=== PATIENT | female | born 1955 | race Caucasian/White ===

== ENCOUNTER 2019-01-21 17:02 | Outpatient (CLI) | payer BC, SELFPAY ==
[2019-01-21 18:06] LABS: D-Dimer 490 ng/mlFEU (<500)
== END 2019-01-21 17:22 ==
PROVIDERS: PCP Student in an Organized Health Care Education/Training Program; Visit Provider Student in an Organized Health Care Education/Training Program
DX: R07.1 Chest pain on breathing (principal); R07.81 Pleurodynia
CPT/HCPCS: 36415; 85379

== ENCOUNTER 2019-01-22 15:51 | Outpatient (CLI) | payer BC, SELFPAY ==
--- NOTE | 2019-01-22 14:04 | DI.RAD_ITS ---
SYMPTOMS/DIAGNOSIS: PLEURITIC PAIN, (D-DIMER < 500), LUNG CRACKLES, PLEURODYNIA, R07.81, R09.89, MILD ILLNESS, ? PNEUMONIA/PLEURITIS/CARDITIS PA AND LATERAL CHEST: The heart is normal in size. The lungs are clear. The mediastinal structures and pleura appear intact. CONCLUSION: Normal chest.
== END 2019-01-22 16:11 ==
PROVIDERS: PCP Student in an Organized Health Care Education/Training Program; Visit Provider Student in an Organized Health Care Education/Training Program
DX: R07.81 Pleurodynia (principal); R09.89 Other specified symptoms and signs involving the circulatory and respiratory systems
CPT/HCPCS: 71046

== ENCOUNTER 2019-02-19 14:11 | Outpatient (CLI) | payer BC, SELFPAY ==
--- NOTE | 2019-02-19 15:50 | DI.CT_ITS ---
EXAM: CT RENAL COLIC WO CLINICAL HISTORY: renal colic ON LT SIDE, N23. TECHNIQUE: COMPARISON: No exams were available for comparison FINDINGS: CT examination of the abdomen and pelvis was performed without contrast administration. Images obtai myra through the lung bases are unremarkable. Visualized portions of the liver and spleen appear norm al. There is cholelithiasis without gallbladder wall thickening or a pericholecystic fluid collectio n. Pancreas appears normal. No biliary dilatation seen. Adrenals and kidneys appear normal. No ur inary tract calcification or obstruction. Urinary bladder unremarkable by noncontrast criteria. Extension Course Coordinator structures appear intact. Appendix is normal. No evidence of bowel obstruction or diverticulitis. Abdominal aorta is of normal diameter. IMPRESSION: Note is made of cholelithiasis. No evidence of urinary tract obstruction or calcification.
== END 2019-02-19 14:31 ==
PROVIDERS: PCP Student in an Organized Health Care Education/Training Program; Visit Provider Internal Medicine
DX: N23 Unspecified renal colic (principal); K80.20 Calculus of gallbladder without cholecystitis without obstruction
CPT/HCPCS: 74176

== ENCOUNTER 2019-02-27 16:27 | Outpatient (REF) | payer BC, SELFPAY | END 2019-02-27 16:47 | LOC: LBO 16:27 | PROVIDERS: PCP Student in an Organized Health Care Education/Training Program; Visit Provider Student in an Organized Health Care Education/Training Program | DX: R31.9 Hematuria, unspecified (principal) | CPT/HCPCS: 87086 ==

== ENCOUNTER 2019-03-04 13:02 | Outpatient (CLI) | payer BC, SELFPAY ==
[2019-03-04 13:28] LABS: HCT 40.2 % (36.0-46.0); HGB 13.4 g/dL (12.0-15.5); Mean Corp. HGB Concentration 33.3 g/dL (32.0-36.0); Mean Corpuscular Volume 95.9 fL (80-95); Mean Platelet Volume 9.4 fL (8.0-11.0); Platelet Count 304 x1000/uL (130-400); RBC 4.19 m/cumm (4.00-5.20); RBC Distribution Width 11.7 % (11.7-14.6); White Blood Cell Count 6.22 k/cumm (4.4-10.8)
[2019-03-04 14:19] LABS: Anion Gap 8.3 mmol/L (3-11); BUN 18 mg/dL (7-18); CO2 29.7 mmol/L (21.0-32.0); CREATININE 0.77 mg/dL (0.55-1.02); Calcium 9.6 mg/dL (8.5-10.1); Chloride 104 mmol/L (98-107); Glucose 89 mg/dL (70-100); Potassium 4.3 mmol/L (3.5-5.1); Sodium 142 mmol/L (136-145)
== END 2019-03-04 13:22 ==
PROVIDERS: PCP Student in an Organized Health Care Education/Training Program; Visit Provider Student in an Organized Health Care Education/Training Program
DX: R53.83 Other fatigue (principal); R31.9 Hematuria, unspecified; R79.89 Other specified abnormal findings of blood chemistry
CPT/HCPCS: 36415; 80048; 85027

== ENCOUNTER 2019-04-17 12:06 | Outpatient (CLI) | payer BC, SELFPAY ==
--- NOTE | 2019-04-17 13:19 | DI.MAMMO_ITS ---
EXAM: MAMMO SCREENING CLINICAL HISTORY: screening Z12.39 TECHNIQUE: Mammograms were interpreted according to the usual protocol including computer analysis w [employer] CAD system, tomosynthesis and C-view imaging. COMPARISON: 2013 and 2014 from [facility]. FINDINGS: The breasts are composed of heterogeneously dense fibroglandular densities, Breast Density category C . No suspicious masses or suspicious microcalcifications are seen. No skin thickening or abnormal axillary lymph nodes are seen. There has been no significant change from prior exams. IMPRESSION: BIRADS Category 1, negative mammogram. Yearly screening mammography is recommended. BI-RADS Cat 1 - Negative Breast Density - Category C - Heterogeneously dense BREAST DENSITY: The mammogram demonstrates the patient's breast tissue is dense. Dense breast tissue is very common and is not abnormal but dense breast tissue can make it harder to find cancer on a ma mmogram. Also, dense breast tissue may increase their breast cancer risk. This information about the result of the mammogram report was provided to the patient to raise their awareness. Use this report when you speak with the patient about their risks for breast cancer, which includes their family hist ory. At that time, you may recommend for more screening tests (Ultrasound or MRI) as they might be us eful based on their risk. A negative radiographic report should not delay biopsy if a dominant or clinically suspicious mass is present. Up to ten percent of cancers are not identified on mammography. A negative report may reinforce clinical impression. Adenosis and dense breasts may obscure an underlying neoplasm. False positive reports average 6 to 10%.
== END 2019-04-17 12:26 ==
PROVIDERS: PCP Student in an Organized Health Care Education/Training Program; Visit Provider Student in an Organized Health Care Education/Training Program
DX: Z12.31 Encounter for screening mammogram for malignant neoplasm of breast (principal)
CPT/HCPCS: 77063; 77067

== ENCOUNTER 2020-03-28 03:37 | Outpatient (CLI) | payer BC, SELFPAY ==
[2020-03-30 22:06] LABS: SARS-CoV-2 RNA Undetected (Undetected); SARS-CoV-2 Specimen Source Nasal
== END 2020-03-28 03:57 ==
PROVIDERS: PCP Student in an Organized Health Care Education/Training Program; Visit Provider Nurse Practitioner Adult Health
DX: Z11.59 Encounter for screening for other viral diseases (principal)
CPT/HCPCS: U0003

== ENCOUNTER 2020-09-16 16:56 | Emergency (ER) | payer BC, SELFPAY ==
[2020-09-16 17:02] VITALS: BP 155/109; PULSE 62; RESP 16; TEMP 36.6; O2SAT 100
--- NOTE | 2020-09-16 17:07 | ED.GENADUL_ITS ---
Discharge Plan Disposition Patient Disposition: HOME Condition: Stable Discharge Details Clinical Impression: Black stools Primary Care Provider: Teresa Barth ED Provider: Haley Dave Home Meds and New Rx's Prescriptions: No Action sertraline 25 mg tablet 25 mg PO DAILY Qty: 90 RF: 1 naproxen sodium [Aleve] 220 mg tablet 440 mg PO DAILY PRNRF: 0 Hold Instructions: Home Medication placed on hold at Doctor's office lisinopril 10 mg tablet 10 mg PO BID Qty: 180 RF: 2 Discharge Instructions Instructions: Gastrointestinal Bleeding (ED) Additional Instructions: Take an over the counter antacid such as Pepcid, Prevacid or similar. Stop the Aleve. Return to ED if dizziness, lightheadedness, worsening abdominal pain or any concerns. Keep appt with General surgery as previously scheduled. Please be aware I cannot rule out more serious problems without doing abdominal imaging. Today the Hbg was 11.2 and Hct 33.4 which is borderline low. Referrals: Teresa Barth DO [Primary Care Provider] - Discharge Data Discharge Date/Time-TO BE ENTERED AT DEPARTURE: 09/16/20 18:25 Medical Decision Making 65 year old female presents to ED with chief complaint of black stools and inter mittent abdominal cramping x 3 days. She reports symptoms began after having a piece of fish. She does endorse to taking 2 Aleve approximately 3-4 times a week for left shoulder pain from a rotator cuff repair. Denies vomiting, no rectal pain, no abdominal pain upon arrival. A&O x4. Was sent here from [facility] and had a guaic positive stool, and was referred for colonoscopy Saturday. Patient is initially declining CT scan until lab results obtained. PAtient has a PmHx of HTN, Gallstones, Depression. At this time Labs ordered including Type and screen and PT INR. Patient initially declining CT abd/Pelvis and would like lab results first. Patient declined IV. Lab results show RBC of 3.45 Hgb 11.2 Hct 33.4, PT INR all WNL, CMP WNL except for BUN 31 AST 14. Discussed lab results with patient and she confirmed she still does not want to go forward with CT or IV meds. Discussed home care including stopping the Aleve, taking an antacid or H2 kayden such as Prevacid or Pepcid OTC and keeping appt with General surgery on Saturday. Discussed strict return instructions including to return if increased dizziness, lightheadedness, worsening abdominal pain or bleeding. Verbalized understanding. Discussed that I cannot rule out serious underlying pathology at this time without further imaging. Verbalized understanding. Patient remained hemodynamically stable, non-tachycardic throughout stay. HPI General Mode of arrival: ambulatory . Date/Time Provider Initiated Documentation: 09/16/20 17:03 . Limitations to Documentation: no limitations . Information obtained by: patient . HPI Narrative: 65 year old female presents to ED with chief complaint of black stools and intermittent abdominal cramping x 3 days. She reports symptoms began after having a piece of fish. She does endorse to taking 2 Aleve approximately 3-4 times a week for left shoulder pain from a rotator cuff repair. Denies vomiting, no rectal pain, no abdominal pain upon arrival. A&O x4. Was sent here from [facility] and had a guaic positive stool, and was referred for colonoscopy Saturday. Patient is initially declining CT scan until lab results obtained. PAtient has a PmHx of HTN, Gallstones, Depression. Related Data Home Medications Medication Instructions Recorded Confirmed naproxen sodium 220 mg tablet 440 mg PO DAILY PRN tab 02/27/19 09/16/20 sertraline 25 mg tablet 25 mg PO DAILY #90 tab 04/01/20 09/16/20 lisinopril 10 mg tablet 10 mg PO BID #180 tab 07/08/20 09/16/20 Previous Rx's Medication Instructions Recorded sertraline 25 mg tablet 25 mg PO DAILY #90 tab 04/01/20 lisinopril 10 mg tablet 10 mg PO BID #180 tab 07/08/20 Allergies Allergy/AdvReac Type Severity Reaction Status Date / Time No Known Allergies Allergy Verified 09/16/20 17:06 General Stated Complaint: GI Bleed MARY: 2 Review of Systems Constitutional Constitutional: Reports as per HPI and Reports poor appetite Respiratory Respiratory: Reports system reviewed and no additional complaints, except as documented, Denies cough and Denies hemoptysis Gastrointestinal Gastrointestinal: Reports abdominal pain, Reports melena, Reports change in bowel habits, Denies fecal incontinence, Denies diarrhea, Reports nausea, Denies vomiting and Denies hematemesis Genitourinary Genitourinary: Reports system reviewed and no additional complaints, except as documented, Denies urinary urgency and Reports other (Reports warm urination) [facility] Medical History Acute colitis 09/06/2011 on colonoscopy. Pathology scanned. Depression Hx, restarting Sertr 03/2020. Isolation 2' COVID, Shldr Injury. Essential hypertension Pleuritic pain Sudden onset, 01/20/19. Surgical History S/P left rotator cuff repair (12/21/19) RCR, ACD, DCR, and OBT. 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 [employer] Pets and animals: Yes (CAT) Sexually active: No Do you think of yourself as: straight/heterosexual Current gender identity: female What is your relationship status?: Panel score (0-1 are the most socially isolated patients): 0 Seatbelt use: always Drive intox or ride w/intox production truck driver: No Working smoke detector in home: Yes Fire extinguisher in home: Yes Do you feel safe at home: Yes Do you feel safe in your relationship?: Yes Exam Const General: cooperative, healthy appearing, comfortable, well developed and well groomed Nutritional Appearance: average body habitus and well nourished Orientation: alert, awake and oriented x3 Chest Chest: normal inspection of the chest Resp Effort & Inspection: normal respiratory effort and able to speak in complete sentences Auscultation: clear to auscultation bilaterally Cardio Jugular venous pressure: no JVD Palpation: normal PMI Rate: regular rate Rhythm: regular rhythm and abnormal rhythm Heart Sounds: S1 normal and S2 normal GI Inspection: normal to inspection Palpation: soft Auscultation: normal bowel sounds Neuro General: patient alert, patient awake and patient oriented x3 Cranial Nerves: CN's II-XI intact bilaterally Cognition: normal cognition Speech: speech normal Gait: normal gait Course Vital Signs Vital signs: Vital Signs Temperature 36.6 C 09/16/20 17:02 Pulse 62 09/16/20 17:02 Respiratory Rate 16 09/16/20 17:02 Blood Pressure 155/109 H 09/16/20 17:02 Pulse Oximetry 100 09/16/20 17:02 Temperature 36.6 C 09/16/20 17:02 Temperature Source Skin 09/16/20 17:02 Pulse 62 09/16/20 17:02 Respiratory Rate 16 09/16/20 17:02 Respiratory Effort Non-Labored 09/16/20 17:07 Blood Pressure 155/109 H 09/16/20 17:02 Blood Pressure Position Sitting 09/16/20 17:02 Pulse Oximetry 100 09/16/20 17:02 Oxygen Delivery Method Room Air 09/16/20 17:02 Oxygen Flow Rate 0 09/16/20 17:02 Pain Level 3 09/16/20 17:02
[2020-09-16 17:10] VITALS: BP 120/69; PULSE 60; O2SAT 100
--- NOTE | 2020-09-16 17:18 | NUR.NOTE ---
pt refusing IV or to change into gown until blood work is back does not want CT unless blood work indicates need Nursing Note:
[2020-09-16 17:36] LABS: Abs Immature Grans 0.02 10^3/uL (0.0-0.06); Absolute Basophil Count 0.07 10^3/uL (0.0-0.2); Absolute Lymphocyte Count 2.69 10^3/uL (1.2-3.4); Absolute Neutrophil Count 3.83 10^3/uL (1.2-6.7); Eosinophils % 1.4; HCT 33.4 % (36.0-46.0); HGB 11.2 g/dL (11.2-15.7); Immature Grans % 0.3; Lymphocytes % 37.8; MCH 32.5 pg (27.0-33.0); MCHC 33.5 % (32.0-36.0); MCV 96.8 fL (80-95); MPV 9.6 fL (8.0-11.0); Monocytes % 5.6; Neutrophils % 53.9; Nucleated RBC 0 %; Platelet Count 268 10^3/uL (130-400); RBC 3.45 10^6/uL (3.93-5.22); RDW 11.7 % (11.7-14.6); RDW-SD 41.4 fL; WBC 7.11 10^3/uL (4.4-10.8)
[2020-09-16 17:51] LABS: Prothrombin Time 9.9 sec (9.3-11.0)
[2020-09-16 17:52] LABS: ALT 19 U/L (14-59); AST 14 U/L (15-37); Albumin 4.1 g/dL (3.4-5.0); Alkaline Phosphatase 87 U/L (46-116); Anion Gap 6.3 mmol/L (3-11); BUN 31 mg/dL (7-18); Bilirubin, Total 0.3 mg/dL (0.2-1.0); CO2 28.7 mmol/L (21.0-32.0); CREATININE 0.8 mg/dL (0.55-1.02); Calcium 9.6 mg/dL (8.5-10.1); Chloride 106 mmol/L (98-107); Glucose 105 mg/dL (74-106); Potassium 4.2 mmol/L (3.5-5.1); Sodium 141 mmol/L (136-145); Total Protein 7.4 g/dL (6.4-8.2)
[2020-09-16 18:26] VITALS: BP 121/81; PULSE 61; RESP 16; TEMP 36.6; O2SAT 97
== END 2020-09-16 18:25 | disposition home or self-care (01) ==
PROVIDERS: Emergency Provider Registered Nurse Emergency; PCP Student in an Organized Health Care Education/Training Program
DX: R19.5 Other fecal abnormalities (principal)
CPT/HCPCS: 36415; 80053; 86850; 86900; 86901; 99283; 83735; 85025; 85610

== ENCOUNTER 2020-09-19 11:55 | Outpatient (CLI) | payer BC, SELFPAY ==
[2020-09-19 12:13] LABS: Abs Immature Grans 0.02 10^3/uL (0.0-0.06); Absolute Basophil Count 0.06 10^3/uL (0.0-0.2); Absolute Eosinophil Count 0.08 10^3/uL (0.0-0.7); Absolute Lymphocyte Count 1.62 10^3/uL (1.2-3.4); Absolute Neutrophil Count 2.97 10^3/uL (1.2-6.7); Basophils % 1.2; Eosinophils % 1.6; HCT 31.8 % (36.0-46.0); HGB 10.5 g/dL (11.2-15.7); Immature Grans % 0.4; Lymphocytes % 32.1; MCH 32.2 pg (27.0-33.0); MCV 97.5 fL (80-95); MPV 10.4 fL (8.0-11.0); Monocytes % 5.9; Neutrophils % 58.8; Nucleated RBC 0 %; Platelet Count 291 10^3/uL (130-400); RBC 3.26 10^6/uL (3.93-5.22); RDW 11.9 % (11.7-14.6); RDW-SD 41.7 fL; WBC 5.05 10^3/uL (4.4-10.8)
[2020-09-19 12:21] LABS: Iron 62 ug/dL (50-170); Total Iron Binding Capacity 295 ug/dL (250-450); Transferrin Sat 21 % (15-50)
[2020-09-19 12:36] LABS: Ferritin 61 ng/mL (8-252)
[2020-09-19 12:44] LABS: C-Reactive Protein 0.63 mg/dL (0.0-0.3)
== END 2020-09-19 11:56 | disposition home or self-care (01) ==
LOC: LBO 11:56
PROVIDERS: Surgery; PCP Student in an Organized Health Care Education/Training Program; Visit Provider Student in an Organized Health Care Education/Training Program
DX: K92.1 Melena (principal); R10.13 Epigastric pain; R53.1 Weakness; R53.83 Other fatigue
CPT/HCPCS: 82728; 83540; 83550; 84443; 85025; 85610; 86140

== ENCOUNTER 2020-09-21 02:35 | Outpatient (CLI) | payer BC, SELFPAY ==
[2020-09-21 11:39] LABS: Source Nasal/Nares
[2020-09-21 21:48] LABS: COVID-19 PCR Negative (Negative)
== END 2020-09-21 02:36 | disposition home or self-care (01) ==
LOC: LBO 02:35
PROVIDERS: PCP Student in an Organized Health Care Education/Training Program; Visit Provider Surgery
DX: Z20.822 Contact with and (suspected) exposure to COVID-19 (principal); Z01.818 Encounter for other preprocedural examination
CPT/HCPCS: 87635

== ENCOUNTER 2020-09-23 09:11 | Day surgery (SDC) | payer BC, SELFPAY ==
[2020-09-23 09:32] VITALS: BP 121/76; PULSE 56; RESP 16; TEMP 36.5; O2SAT 100
[2020-09-23] MEDS: Lactated Ringers 1,000 ML 80 ML IV (09:54)
--- NOTE | 2020-09-23 10:21 | W.ANESPRE ---
General Info Date of Service Date Performed: 09/23/20 Height: 5 ft 4 in Weight: 78.982 kg Body Mass Index (BMI): 29.9 Surgical Procedure: Operation Date: 09/23/20 10:05 Proposed Procedures Side Surgeon p Colonoscopy/Gastroscopy Margaret Tim, DO Meds Allergies and Home Medications Allergies Allergy/AdvReac Type Severity Reaction Status Date / Time No Known Allergies Allergy Verified 09/20/20 10:50 Home Medication Medication Instructions Recorded naproxen sodium 220 mg tablet 440 mg PO DAILY PRN tab 02/27/19 sertraline 25 mg tablet 25 mg PO DAILY #90 tab 04/01/20 lisinopril 10 mg tablet 10 mg PO BID #180 tab 07/08/20 apple cider vinegar 500 mg tablet 2,000 mg PO DAILY tab 09/19/20 bisacodyl 5 mg tablet,delayed 5 mg PO ONCE #4 tab 09/19/20 release polyethylene glycol 3350 17 238 g PO ONCE #238 g 09/19/20 gram/dose oral powder Current Visit Medications: Current Medications Generic Name Dose Route Start Last Admin Trade Name Freq PRN Reason Stop Dose Admin Ringer's Solution 1,000 mls @ 80 mls/hr 09/23/20 06:00 09/23/20 09:54 IV 10/22/20 23:59 80 mls/hr INFUSION NATALIYA Administration Iron Sucrose 200 mg/ Sodium 110 mls @ 440 mls/hr 09/23/20 06:00 Chloride IVPB 09/23/20 23:59 TODAY NATALIYA IV Miscellaneous Supplies 1 each 09/23/20 06:00 Iv Access IV 10/22/20 23:59 DIRECTED NATALIYA Sodium Chloride 0 ml 09/23/20 06:00 Normal Saline Flush 10 Ml Syr IV 10/22/20 23:59 PRN PRN Sodium Chloride 0 ml 09/23/20 06:00 Normal Saline 10 Ml Vial IJ 10/22/20 23:59 DIRECTED PRN Sterile Water 0 ml 09/23/20 06:00 Water,Injection,Sterile 10 Ml Vial IJ 10/22/20 23:59 DIRECTED PRN PFSH Active Problems Active Problems: Problem Status Onset Code Weak R53.1 Fatigue R53.83 Epigastric pain R10.13 Black stools K92.1 Left shoulder pain M25.512 Frequent headaches R51 Essential hypertension I10 Family history of breast cancer Z80.3 Gallstones K80.20 Pleuritic pain R07.81 Depression F32.9 Medical History Medical History Acute colitis 09/06/2011 on colonoscopy. Pathology scanned. Depression Hx, restarting Sertr 03/2020. Isolation 2' COVID, Shldr Injury. Essential hypertension Pleuritic pain Sudden onset, 01/20/19. Surgical History Surgical History S/P left rotator cuff repair (12/21/19) RCR, ACD, DCR, and OBT. Clive Bazan MD, [facility] Tobacco Smoking/Tobacco Use Status: Never Alcohol Alcohol Intake: current Alcohol intake frequency: a few times a month Alcohol type: wine Substance Use Substance use: Never Substance use type: does not use Vital Signs and Lab Results Vital Signs Most Recent Vital Signs in EMR: Most Recent Vital Signs Temp Pulse Resp BP Pulse Ox 36.5 C 56 L 16 121/76 100 09/23/20 09:32 09/23/20 09:32 09/23/20 09:32 09/23/20 09:32 09/23/20 09:32 Lab Results Blood Type / Crossmatch: Patient ABO/Rh A Positive 09/16/20 17:27 09/16/20 Antibody Screen Negative 09/16/20 17:27 09/16/20 Complete Blood Count: White Blood Count 5.05 10^3/uL (4.4-10.8) 09/19/20 11:00 09/19/20 Red Blood Count 3.26 10^6/uL (3.93-5.22) L 09/19/20 11:00 09/19/20 Hemoglobin 10.5 g/dL (11.2-15.7) L 09/19/20 11:00 09/19/20 Hematocrit 31.8 % (36.0-46.0) L 09/19/20 11:00 09/19/20 Platelet Count 291 10^3/uL (130-400) 09/19/20 11:00 09/19/20 Complete Metabolic Panel: Sodium Level 141 mmol/L (136-145) 09/16/20 17:09/16/20 Potassium Level 4.2 mmol/L (3.5-5.1) 09/16/20 17:09/16/20 Chloride Level 106 mmol/L (98-107) 09/16/20 17:09/16/20 Carbon Dioxide Level 28.7 mmol/L (21.0-32.0) 09/16/20 17:09/16/20 Blood Urea Nitrogen 31 mg/dL (7-18) H 09/16/20 17:09/16/20 Creatinine 0.8 mg/dL (0.55-1.02) 09/16/20 17:09/16/20 Magnesium Level 2.0 mg/dL (1.8-2.4) 09/16/20 17:09/16/20 Calcium Level 9.6 mg/dL (8.5-10.1) 09/16/20 17:09/16/20 Albumin 4.1 g/dL (3.4-5.0) 09/16/20 17:09/16/20 Glucose Level 105 mg/dL (74-106) 09/16/20 17:09/16/20 C-Reactive Protein 0.63 mg/dL (0.0-0.3) H 09/19/20 11:00 09/19/20 Liver Function Panel: Alanine Aminotransferase (ALT/SGPT) 19 U/L (14-59) 09/16/20 17:09/16/20 Aspartate Amino Transf (AST/SGOT) 14 U/L (15-37) L 09/16/20 17:09/16/20 Coagulation Panel: INR International Normalized Ratio 1.0 (0.9-1.1) 09/16/20 17:09/16/20 Prothrombin Time 9.9 sec (9.3-11.0) 09/16/20 17:09/16/20 Cardiac Panel: No Data to Display Arterial Blood Gas: No Data to Display Venous Blood Gas: No Data to Display Pancreas Panel: No Data to Display Thyroid Panel: Thyroid Stimulating Hormone (TSH) 1.50 uIU/mL (0.36-3.74) 09/19/20 11:00 09/19/20 Infectious Disease: Coronavirus (COVID-19)(PCR) Negative (Negative) 09/21/20 10:11 09/21/20 Coronavirus 2019 Source Nasal/nares 09/21/20 10:11 09/21/20 Blood Cultures: No Data to Display Toxicology Panel: No Data to Display Anesthesia Assessment and Plan Anesthesia History Personal History: No History of Anesthesia Complications Family History: No Family History of Anesthesia Complications Exercise Tolerance Exercise Tolerance: Metabolic Equivalents>4 Pertinent Negatives Pertinent Negatives: No Symptoms of GERD, No Major Cardiovascular Symptoms or Complaints, No Major Pulmonary Symptoms or Complaints and No History of CVA/TIA Cardiac & Pulmonary Exam Cardiac Exam: Normal S1/S2 Heart Sounds Pulmonary Exam: Clear Bilateral Breath Sounds Airway Exam Known Difficult Airway: No Mallampati Class: 2 Mouth Opening: Normal (> 3cm) Thyromental Distance: Greater than 3 cm Neck Range of Motion: Full ROM Neck Circumference: Normal Teeth Condition: Normal Dentition ASA Classification ASA Score: ASA 2 Emergency Case?: No NPO Status NPO Status: NPO Clears >2 hours, Solids >8 hours Anesthesia Plan Resuscitation Status: Full Code Anesthesia Technique: General Anesthesia Airway Planned: Natural Airway Monitors Used: Standard Monitors
[2020-09-23 10:41] VITALS: BMI 29.9
--- NOTE | 2020-09-23 10:51 | W.COLOREPORT ---
Date of service: 09/23/20 Time of Service: 10:51 Colonoscopy Report Date of procedure: 09/23/20 Pre-op diagnosis general: anemia Post-op diagnosis procedure note: same Surgeon: Margaret Tim Anesthesia Type: General:No Airway Estimated blood loss (mL): 0 Pathology: none sent Complications: None Disposition: same day Prep: Miralax/Dulcolax Retraction Time: 8 mins Procedure Description: After informed consent was obtained the patient was taken to the procedure room and placed in a left decubitous position. Monitors were applied and a time out was done. The patients name, date of , procedure, allergies to medications and metal in their body was reviewed. The patient was then sedated. Once sedated and comfortable a rectal exam was done. External exam was normal. Internal exam revealed a normal sphincter tone and no palpable masses. The scope was then introduced and retrofelexed. No internal hemorrhoids were identified. The scope was then advanced to the cecum without difficulty. The TI and appendiceal orifice were identified. The prep was . The scope was then slowly retracted over 8 minutes back into the rectum. There are no polyps, AVMs, or diverticula apparent. Mucosa appears pink and healthy.. The scope was removed and the patient was woken up and taken back to Same day surgery in stable condition. The patient tolerated the procedure well and there were no immediate complications. Follow up: The patient should follow up in 10 years unless they develop changes in bowel habits or other new gastrointestinal complaints.
--- NOTE | 2020-09-23 10:53 | ENDO_ITS ---
Date of service: 09/23/20 Time of Service: 10:53 Endoscopy Report DATE OF PROCEDURE: 09/23/20 PRE-OP DIAGNOSIS: anemia SURGEON: Margaret Tim ANESTHESIA TYPE: General:No Airway PATHOLOGY: other COMPLICATIONS: None DISPOSITION: same day PROCEDURE DESCRIPTION: After informed consent was obtained the patient was take to the procedure room and placed in a supine position. Monitors were applied and a time out was done. The patients name, date of , procedure type, allergies to medicnlations and metal in their body was reviewed. A bite block was placed and the patient was sedated. Once sedated and comfortable the gastroscope was advanced through the oropharynx which was grossly normal into the esophagus. The proximal and mid-esophagus were . In the distal esophagus there was no esophageal erosions, varices, diverticula. She does have a small sliding-type hiatal hernia, less than 2 cm. The scope was advanced into the stomach and through the pylorus into the 3rd portion of the duodenum. The duodenum was noted to be normal. Biopsies were done; all specimens are retrieved and no bleeding is noted. The scope was retracted back into the stomach and biopsies were done to rule out H. pylori. There was a small ulcer in the antral region. This has a whitish eschar on it. There is a minimal amount of bleeding was from this area. Biopsies were taken. The biopsies did not cause or create any further bleeding. The scope was retroflexed. The cardia and fundus were noted to be normal. The scope was retracted back into the esophagus and biopsies were done of the GE junction to rule out Handley's. The Z line was regular. The scope was removed and the patient was woken up and taken back to [facility] in stable condition. Follow up: 2 weeks time. This is considered to be the source of the patient's anemia.
--- NOTE | 2020-09-23 11:05 | BOWEL_PTH ---
PATIENT: Kiersten Sewell LOC: [facility] U#:[id number] AGE/SX: 65/F ROOM: RE09/23/[address]: Margaret Tim : 1955 BED: DIS: 09/23/2020 SPEC #: [id number] RECD: 09/23/20 12:49 STATUS: TORI REChapo #: [id number] LUCERO: 09/23/20 11:[address]: Margaret Tim DEPT: Surgical Specimen RECD BY: Joycelyn Alex ENTERED: 09/23/20 12:51 SP TYPE: Bowel OTHR DR: Teresa Barth DO Tissues: 1 - BIOPSY BOWEL 2 - BIOPSY BOWEL 3 - STOMACH BIOPSY 4 - STOMACH BIOPSY 5 - STOMACH BIOPSY 6 - ESOPHAGUS BIOPSY 7 - ESOPHAGUS BIOPSY Procedures: GROSS AND MICRO LEVEL 4 Comments: [id number]
[2020-09-23 11:36] VITALS: BP 117/70; PULSE 54; RESP 16; TEMP 36.7; O2SAT 98
--- NOTE | 2020-09-23 11:38 | W.ANESPOSTOP ---
Postoperative Evaluation Date, Time and Location Date Performed: 09/23/20 Time Performed: 11:38 Patient Location: Day Surgery Unit Vital Signs Most Recent Imported Vital Signs: Most Recent Vital Signs Temp Pulse Resp BP Pulse Ox 36.5 C 56 L 16 121/76 100 09/23/20 09:32 09/23/20 09:32 09/23/20 09:32 09/23/20 09:32 09/23/20 09:32 Most Recent Manually Entered Vital Signs: Adult Blood Pressure: 117/70 Heart Rate: 57 Respirations: 14 Oxygen Saturation (%): 94 Temperature (C): 36.7 C Pain Score (0-10 Scale): 3 Pain Score Most Recent Pain Score: Most Recent Pain Score Pain Level 0 09/23/20 09:32 Assessment Mental Status: Awake (Alert & Oriented to Patient Baseline) Airway and Respiratory Function: Patent airway with normal (patient baseline) respiratory exam Cardiovascular Function: Hemodynamically Stable Hydration Status: Adequately Hydrated Nausea & Vomiting: No Nausea or Vomiting Pain: Pt. Denies Any Pain Peripheral Nerve Block: Patient did not receive a nerve block
[2020-09-23 11:39] VITALS: BP 117/70; PULSE 57; RESP 14; TEMPC 36.7; O2SAT 94
--- NOTE | 2020-09-23 11:41 | PDOC.DSDIS_ITS ---
Discharge Plan Disposition Patient Disposition: HOME Condition: Good Discharge Details Reason For Visit: egd and colon scope Attending Provider: Margaret Tim Primary Care Provider: Teresa Barth Home Meds and New Rx's Prescriptions: New pantoprazole [Protonix] 40 mg tablet,delayed release (DR/EC) 40 mg PO BID 84 Days Qty: 168 RF: 12 sucralfate [Carafate] 1 gram tablet 1 g PO QACHS 30 Days Qty: 120 RF: 12 Continued sertraline 25 mg tablet 25 mg PO DAILY Qty: 90 RF: 1 Discontinued naproxen sodium [Aleve] 220 mg tablet 440 mg PO DAILY PRNRF: 0 Hold Instructions: Home Medication placed on hold at Doctor's office apple cider vinegar 500 mg tablet 2,000 mg PO DAILY RF: 0 polyethylene glycol 3350 17 gram/dose powder 238 g PO ONCE Qty: 238 RF: 0 bisacodyl [Dulcolax (bisacodyl)] 5 mg tablet,delayed release (DR/EC) 5 mg PO ONCE Qty: 4 RF: 0 No Action lisinopril 10 mg tablet 10 mg PO BID Qty: 180 RF: 2 Discharge Instructions Additional Instructions: DSU Colonoscopy Post- Op Instructions Instructions for Everyone who is given Anesthesia: For your safety, please do the following for the next twenty-four (24) hours: *Do Not operate a motor vehicle (car, truck, motorcycle, etc.) *Do Not drink alcoholic beverages or use any recreational drugs for the first 24 hours or while taking pain medications. The medications in your body may have a reaction that can be dangerous. *Do Not make any important decisions or sign any important papers. Findings: stomach ulcer No ASA/NSAID's for 6 wks protonix twice a day for 12 wks carafate at bedtime and 30 mins before a meal for 4wks. Continue with lifestyle modifications: no alcohol, tobacco products, Aspirin or NSAID's (ibuprofen, Motrin, Naprosyn, aleve, etc), soda pop/any carbonated beverages, caffeine (including tea & chocolate), and acidic foods, (tomatoes, citrus, onions, peppermints) spicy foods. Do not lie down for 30 minutes after eating, and do not eat 2 hours prior to bedtime. Avoid wearing tight fitting clothing/ belts Follow up:3 wks for repeat labs and clinic visit. 1. No lifting over 20 pounds or strenuous activity for the first 24 hours after your procedure. After 24 hours there are no restrictions on your activity but you may feel fatigued for a few days. 2. After you arrive home you may have a light meal and return to your normal diet as you can tolerate it without feeling sick to your stomach. 3. You may have a bloated, gaseous feeling in your belly (abdomen) after a colonoscopy. Passing gas and belching will help. Walking or lying down on your left side with your knees flexed may relieve the discomfort. Call the office at [phone] (Office) or [phone] (Hospital) right away if you notice any of the following: a.Vomiting of blood or ?coffee ground stools?. b.Rectal bleeding 1Tbsp, blood clots or continuous bleeding. c.Severe belly (abdominal) pain. d.A hard distended belly (abdomen) and an inability to pass gas. 4. Please don?t expect to have a normal BM (bowel movement) for 2-3 days after your procedure. 5. If there are questions regarding the findings of your procedure, please contact your doctor 6. If you are unable to contact your doctor with a problem, contact the hospital at [phone]. 7. Continue all your regular medications unless directed otherwise. I understand the above instructions and have no questions. Signature of Patient or Adult Escort Name of Responsible Adult Escort Signature of Nurse Date/Time Activity:: as above Diet:: as above Discharge Orders Discharge Orders: Discharge Order (Routine); Ordered 09/23/20 Ordered By: Margaret Tim DS: Diagnosis Discharge Diagnosis (1) Gastric ulcer due to chemical: Status: Acute (2) Hiatal hernia: Status: Chronic
[2020-09-23] MEDS: IRON SUCROSE COMPLEX 200 MG in Normal Saline 100 ML 440 MG IVPB (11:56)
[2020-09-23 12:15] VITALS: BP 147/68; PULSE 58; RESP 16; TEMP 36.4; O2SAT 99
== END 2020-09-23 13:35 | disposition home or self-care (01) ==
PROVIDERS: PCP Student in an Organized Health Care Education/Training Program; Visit Provider Surgery
PROC: (CPT 43239; principal; 2020-09-23 10:00)
DX: D64.9 Anemia, unspecified (principal); K44.9 Diaphragmatic hernia without obstruction or gangrene; K25.4 Chronic or unspecified gastric ulcer with hemorrhage
CPT/HCPCS: 43239; 45378; 88305; 96365; J1756; J2001

== ENCOUNTER 2021-03-07 00:23 | Outpatient (CLI) | payer MEDICARE, BC, SELFPAY ==
--- NOTE | 2021-03-07 07:30 | DI.MAMMO_ITS ---
Exam(s) MAMMO SCREENING EXAM: MAMMO SCREENING CLINICAL HISTORY: screening,Z12.39 TECHNIQUE: Mammograms were interpreted according to the usual protocol including computer analysis w [employer] CAD system, tomosynthesis and C-view imaging. COMPARISON: 2013 through 2018 FINDINGS: The breasts are composed of scattered fibroglandular densities, Breast Density category B. No suspicious masses or suspicious microcalcifications are seen. No skin thickening or abnormal axillary lymph nodes are seen. There has been no significant change from prior exams. IMPRESSION: BI-RADS Category 1, Negative mammogram Yearly screening mammography is recommended. Breast Density - Category B, scattered fibroglandular densities. A negative radiographic report should not delay biopsy if a dominant or clinically suspicious mass is present. Up to ten percent of cancers are not identified on mammography. A negative report may reinforce clinical impression. Adenosis and dense breasts may obscure an underlying neoplasm. False positive reports average 6 to 10%. Patient will receive a letter notifying them of these results.
== END 2021-03-07 00:43 ==
PROVIDERS: PCP Student in an Organized Health Care Education/Training Program; Visit Provider Student in an Organized Health Care Education/Training Program
DX: Z12.31 Encounter for screening mammogram for malignant neoplasm of breast (principal)
CPT/HCPCS: 77063; 77067

== ENCOUNTER 2021-04-03 14:04 | Outpatient (REF) | payer MEDICARE, BC, SELFPAY ==
--- NOTE | 2021-04-03 13:30 | PAPFT_PTH ---
PATIENT: Kiersten Sewell LOC: [facility] U#:[id number] AGE/SX: 66/F ROOM: RE04/03/[address]: NANDINI Centeno : 1955 BED: DIS: 04/03/2021 SPEC #: [id number] RECD: 04/03/21 18:02 STATUS: TORI REQ #: [id number] LUCERO: 04/03/21 13:[address]: Ghazala Agee DEPT: [facility] Cytology RECD BY: Joycelyn Alex ENTERED: 04/03/21 18:02 SP TYPE: PAPFT OTHR DR: Teresa Barth, DO Tissues: 1 - CX/ENDOCX FOR PAP SMEARS Procedures: PAP THIN PREP/UVM Screening HPV DNA PROBE Comments: [id number]
== END 2021-04-03 14:05 | disposition home or self-care (01) ==
LOC: LBN 14:04
PROVIDERS: PCP Student in an Organized Health Care Education/Training Program; Visit Provider Nurse Practitioner Family
DX: Z12.4 Encounter for screening for malignant neoplasm of cervix (principal); Z11.51 Encounter for screening for human papillomavirus (HPV); Z01.419 Encounter for gynecological examination (general) (routine) without abnormal findings
CPT/HCPCS: 88142; 87624

== ENCOUNTER 2021-05-26 23:29 | Outpatient (CLI) | payer MEDICARE, BC, SELFPAY ==
--- NOTE | 2021-05-26 07:00 | DI.DEXA_ITS ---
Exam(s) XR DEXA BONE DENSITY W/WO MARTINA EXAM: XR DEXA BONE DENSITY W/WO MARTINA CLINICAL HISTORY: screening for osteoporosis in postmenopausal woman,z78.0,assess fx risk,at TECHNIQUE: Routine DEXA evaluation of the lumbar spine, hip, or forearm. COMPARISON: No exams were available for comparison FINDINGS: Performed on a Hologic unit. Lateral image: No compression fracture evident. Lumbar Spine total T-score: 0.3 Hip total T-score:-1.2 Independent reading at the level of the femoral neck yields at T-score of -1.4. Forearm total T-score: -2.6 IMPRESSION: Bone mineral density measures in the osteopenia range, bordering on osteoporosis. Fracture risk is m oderate-high. Note: Any spine fracture indicates 5x risk for subsequent spine fracture and 2x risk for subsequent h ip fracture. World Health Organization criteria for BMD interpretation classify patients: Normal...... T- Score at or above -1.0 Osteopenic... T- Score between -1.0 and -2.5 Osteoporosis... T-Score at or below -2.5
== END 2021-05-26 23:49 ==
PROVIDERS: PCP Student in an Organized Health Care Education/Training Program; Visit Provider Student in an Organized Health Care Education/Training Program
DX: Z13.820 Encounter for screening for osteoporosis (principal); Z78.0 Asymptomatic menopausal state; M85.89 Other specified disorders of bone density and structure, multiple sites
CPT/HCPCS: 77080

== ENCOUNTER → 2021-05-30 00:49 | Outpatient (CLI) | payer MEDICARE, BC, SELFPAY ==
--- NOTE | 2021-05-30 07:00 | DI.US_ITS ---
Exam(s) US PELVIS EXAM: US PELVIS CLINICAL HISTORY: post menopausal bleeding,n95.0 TECHNIQUE: Ultrasound of the pelvis was performed transabdominally. Patient apparently refused cordero svaginal study. COMPARISON: Prior CT scan 02/19/2019 was reviewed FINDINGS: UTERUS: Measures 5.5 cm length x 1.9 cm AP x 4.4 cm wide. There are no uterine fibroids. Endometrial thickness measures 4.9 mm. There is no fluid in the endometrial canal. CERVIX: There are no obvious nabothian cysts. Both ovaries were not identified in this 66-year-old patient. CUL-DE-SAC: No free fluid evident. IMPRESSION: 1. This transabdominal pelvic ultrasound examination the uterus appears unremarkable. 2. Ovaries were not able to be identified. No free fluid DATA REPOSITORY:
== END ==
PROVIDERS: PCP Student in an Organized Health Care Education/Training Program; Visit Provider Nurse Practitioner Family
DX: N95.0 Postmenopausal bleeding (principal)
CPT/HCPCS: 76856

== ENCOUNTER 2022-06-20 04:06 | Outpatient (CLI) | payer MEDICARE, BC, SELFPAY ==
[2022-06-20 15:17] LABS: HCT 39.2 % (36.0-46.0); HGB 12.9 g/dL (11.2-15.7); MCH 32.8 pg (27.0-33.0); MCHC 32.9 % (32.0-36.0); MCV 100 fL (80-95); MPV 9.5 fL (8.0-11.0); Platelet Count 231 10^3/uL (130-400); RBC 3.93 10^6/uL (3.93-5.22); RDW 11.3 % (11.7-14.6); RDW-SD 41.9 fL; WBC 5.06 10^3/uL (4.4-10.8)
[2022-06-20 15:39] LABS: Anion Gap 5.8 mmol/L (3-11); BUN 14 mg/dL (7-18); CO2 31.2 mmol/L (21.0-32.0); CREATININE 0.7 mg/dL (0.55-1.02); Calcium 10.1 mg/dL (8.5-10.1); Calculated LDL 107 mg/dL (<100); Chloride 101 mmol/L (98-107); Cholesterol 201 mg/dL (<200); Estimated GFR 95.32 (mL/min/1.73m2); Glucose 97 mg/dL (74-106); HDL Cholesterol 78 mg/dL (40-60); Potassium 4.2 mmol/L (3.5-5.1); Sodium 138 mmol/L (136-145); Triglyceride 83 mg/dL (<150)
== END 2022-06-20 04:07 | disposition home or self-care (01) ==
LOC: LBO 04:06
PROVIDERS: PCP Student in an Organized Health Care Education/Training Program; Visit Provider Student in an Organized Health Care Education/Training Program
DX: R79.89 Other specified abnormal findings of blood chemistry (principal); Z01.30 Encounter for examination of blood pressure without abnormal findings
CPT/HCPCS: 36415; 80048; 80061; 85027

== ENCOUNTER → 2023-04-30 00:50 | Outpatient (CLI) | payer MEDICARE, BC, SELFPAY ==
--- NOTE | 2023-04-30 | DI.MAMMO_ITS ---
Exam(s) MAMMO SCREENING EXAM: MAMMO SCREENING CLINICAL HISTORY: screening, Z12.39. TECHNIQUE: Bilateral full field digital CC and MLO mammographic images were obtained with 3D tomosyn thesis and utilizing computer aided detection (CAD). COMPARISON: Prior mammograms dating back to 2013 were reviewed. FINDINGS: Breasts have decreased in size. Apparently there has been significant weight loss There are no new spiculated masses nor new malignant appearing microcalcification groups. A group of microcalcifications located inferiorly in the right breast remains unchanged from prior ma mmograms There is no significant architectural distortion nor skin thickening-retraction. IMPRESSION: No radiographic evidence of malignancy. Stable benign-appearing findings BI-RADS Category 2 - Benign Findings Breast Density - Category B - Scattered areas of fibroglandular density Breast density Category C or D implies that the patient has dense breast tissue. Dense breast tissue can make it harder to find cancer on a mammogram. Dense breast tissue is also associated with an incr eased risk of breast cancer. This information about the result of the mammogram report was provided to the patient to raise their awareness. Use this report when you speak with the patient about their risks for breast cancer, which includes their family history. At that time, you may recommend additional screening tests (Ultrasoun d or MRI) as these tests may add significant information. A negative radiographic report should not delay biopsy if a dominant or clinically suspicious mass is present. Up to ten percent of cancers are not identified on mammography. A negative report may reinforce clinical impression. Adenosis and dense breasts may obscure an underlying neoplasm. False positive reports average 6 to 10%. Patient will receive a letter notifying them of these results.
== END ==
PROVIDERS: PCP Student in an Organized Health Care Education/Training Program; Visit Provider Student in an Organized Health Care Education/Training Program
DX: Z12.31 Encounter for screening mammogram for malignant neoplasm of breast (principal)
CPT/HCPCS: 77063; 77067

== ENCOUNTER 2023-05-24 17:53 | Outpatient (REF) | payer MEDICARE, BC, SELFPAY ==
[2023-05-24 21:06] LABS: Source Nasal/Nares
[2023-05-24 22:06] LABS: COVID-19 PCR Negative (Negative)
== END 2023-05-24 17:54 | disposition home or self-care (01) ==
LOC: LBN 17:53
PROVIDERS: PCP Student in an Organized Health Care Education/Training Program; Visit Provider Physician Assistant Medical
DX: Z20.822 Contact with and (suspected) exposure to COVID-19 (principal)
CPT/HCPCS: 87635

== ENCOUNTER 2023-09-02 05:11 | Outpatient (CLI) | payer MEDICARE, BC, SELFPAY ==
[2023-09-02 18:46] LABS: TSH (W/Ref FT4) 1.11 uIU/mL (0.36-3.74)
[2023-09-02 19:20] LABS: Vitamin D 25 Total 23.9 ng/mL (30-100)
== END 2023-09-02 05:12 | disposition home or self-care (01) ==
LOC: LBO 05:12
PROVIDERS: PCP Student in an Organized Health Care Education/Training Program; Visit Provider Student in an Organized Health Care Education/Training Program
DX: R53.83 Other fatigue (principal); M85.89 Other specified disorders of bone density and structure, multiple sites
CPT/HCPCS: 36415; 82306; 84443

== ENCOUNTER → 2023-11-07 00:12 | Outpatient (CLI) | payer MEDICARE, BC, SELFPAY ==
--- NOTE | 2023-11-07 07:00 | DI.DEXA_ITS ---
Exam(s) XR DEXA BONE DENSITY W/WO MARTINA EXAM: XR DEXA BONE DENSITY W/WO MARTINA CLINICAL HISTORY: borderline osteoporosis,at risk,osteopenia,screening for osteoporosis,z78.0 TECHNIQUE: COMPARISON: CR XR DEXA BONE DENSITY W/WO MARTINA from 05/26/2021 FINDINGS: Lateral Spine Image: Unremarkable. No compression deformities identified. Left hip: Total T-Score: -1.6. This compares to -1.2 on the prior examination. Total Z-Score: -0.2 T- and Z-scores: Findings are consistent with osteopenia. There is no evidence of osteoporosis. Lumbar Spine: Total T-Score: -0.4. This compares to 0.3 on the prior examination. Total Z-Score: 1.6 T- and Z-scores: Within normal limits. No evidence of osteoporosis. Left forearm: Total T-score:-3.0. This compares to -2.6 on the prior examination. Total Z-score:-1.2 T and Z-score is: Findings are consistent with osteoporosis. IMPRESSION: Osteoporosis is again seen in the left forearm.
== END ==
PROVIDERS: PCP Student in an Organized Health Care Education/Training Program; Visit Provider Student in an Organized Health Care Education/Training Program
DX: Z91.89 Other specified personal risk factors, not elsewhere classified (principal); M85.80 Other specified disorders of bone density and structure, unspecified site; R79.89 Other specified abnormal findings of blood chemistry; Z78.0 Asymptomatic menopausal state
CPT/HCPCS: 77080

== ENCOUNTER 2024-08-03 02:41 | Outpatient (CLI) | payer MEDICARE, SELFPAY ==
[2024-08-03 18:25] LABS: Vitamin D 25 Total 27 ng/mL (30-100)
== END 2024-08-03 02:42 | disposition home or self-care (01) ==
LOC: LBO 02:41
PROVIDERS: Absent Provider Student in an Organized Health Care Education/Training Program; PCP Student in an Organized Health Care Education/Training Program; Referring Provider Student in an Organized Health Care Education/Training Program; Visit Provider Student in an Organized Health Care Education/Training Program
DX: K90.9 Intestinal malabsorption, unspecified (principal)
CPT/HCPCS: 36415; 82306

== ENCOUNTER 2025-01-20 02:36 | Outpatient (CLI) | payer MEDICARE, SELFPAY ==
--- NOTE | 2025-01-20 06:30 | DI.MAMMO_ITS ---
Exam(s) MAMMO SCREENING EXAM: MAMMO SCREENING CLINICAL HISTORY: screening,Z12.39. TECHNIQUE: Bilateral full field digital CC and MLO mammographic images were obtained with 3D tomosynthesis and utilizing computer aided detection (CAD). COMPARISON: Prior mammograms were reviewed. FINDINGS: There are no new right breast findings. The previously described microcalcification group in the inferior aspect of the right breast remains unchanged. In the left breast on the 3D MLO view there is suggestion of a possible 8 by 5 mm nodule located 4 cm in from the nipple on the MLO view. Spot compression views recommended. There are no malignant-appearing microcalcification groups is region or elsewhere in either breast. There is no significant architectural distortion nor skin thickening-retraction. IMPRESSION: 1. No radiographic evidence of malignancy in the right breast. 2. Possible 8 x 5 mm nodule in the left breast. Spot compression MLO view and breast ultrasound recommended. BI-RADS Category 0 - Incomplete: Need additional imaging evaluation Breast Density - Category B - There are scattered areas of fibroglandular density. Breast density Category C or D implies that the patient has dense breast tissue. Dense breast tissue can make it harder to find cancer on a mammogram. Dense breast tissue is also associated with an increased risk of breast cancer. This information about the result of the mammogram report was provided to the patient to raise their awareness. Use this report when you speak with the patient about their risks for breast cancer, which includes their family history. At that time, you may recommend additional screening tests (Ultrasound or MRI) as these tests may add significant information. A negative radiographic report should not delay biopsy if a dominant or clinically suspicious mass is present. Up to ten percent of cancers are not identified on mammography. A negative report may reinforce clinical impression. Adenosis and dense breasts may obscure an underlying neoplasm. False positive reports average 6 to 10%. Patient will receive a letter notifying them of these results.
== END 2025-01-20 02:56 ==
LOC: DI 02:36
PROVIDERS: PCP Family Medicine; Visit Provider Family Medicine
DX: Z12.31 Encounter for screening mammogram for malignant neoplasm of breast (principal)
CPT/HCPCS: 77063; 77067

== ENCOUNTER 2025-02-01 07:30 | Outpatient (CLI) | payer MEDICARE, SELFPAY ==
--- NOTE | 2025-02-01 | DI.US_ITS ---
Exam(s) MG MAMMO SCREEN CALL BACK UNI US BREAST LT LIMITED EXAM: MG MAMMO SCREEN CALL BACK UNI CLINICAL HISTORY: POSSIBLE 8X5 NODULE LT BREAST R92.8 ABNL MAMMO. TECHNIQUE: Craniocaudal and mediolateral oblique spot compression digital Mammography views of the leftbreast with Tomosynthesis and left breast ultrasound. COMPARISON: MG MG MAMMO SCREENING from 01/20/2025 US US BREAST LT LIMITED from 02/01/2025 FINDINGS: Mammography/Tomosynthesis: Masses: None seen. Architectural Distortion: None seen. Microcalcifictions: No suspicious pleomorphic-type are seen. Skin Thickening/Nipple Retraction: None. Left breast US: Echotexture: Normal appearance of the glandular tissue. Shadowing: No suspicious foci. Cyst: 7 x 3 x 6 millimeters cyst at 3 o'clock position 3 cm from the nipple. 3 x 2 x 4 millimeter cyst in the retroareolar region. Solid lesions: None seen. Ductal dilation: None. IMPRESSION: 1. No evidence of malignancy is noted. 2. Unless there is more urgent need, follow-up screening mammography is recommended, as per [place] [employer] guidelines. 3. The findings were discussed with the patient on the date of the examination. BI-RADS Category 2 - Benign Findings Breast Density - Category B - There are scattered areas of fibroglandular density. Breast density Category C or D implies that the patient has dense breast tissue. Dense breast tissue can make it harder to find cancer on a mammogram. Dense breast tissue is also associated with an increased risk of breast cancer. This information about the result of the mammogram report was provided to the patient to raise their awareness. Use this report when you speak with the patient about their risks for breast cancer, which includes their family history. At that time, you may recommend additional screening tests (Ultrasound or MRI) as these tests may add significant information. A negative radiographic report should not delay biopsy if a dominant or clinically suspicious mass is present. Up to ten percent of cancers are not identified on mammography. A negative report may reinforce clinical impression. Adenosis and dense breasts may obscure an underlying neoplasm. False positive reports average 6 to 10%. Patient will receive a letter notifying them of these results.
== END 2025-02-01 07:50 ==
LOC: DI 07:30
PROVIDERS: PCP Family Medicine; Visit Provider Family Medicine
DX: Z12.31 Encounter for screening mammogram for malignant neoplasm of breast (principal); N63.25 Unspecified lump in the left breast, overlapping quadrants
CPT/HCPCS: 76642; 77063; 77067